=== PATIENT | female | born 1995 | race Caucasian/White ===

== ENCOUNTER 2018-03-10 19:22 | Emergency (ER) | payer SELFPAY ==
[~2018-03-10] VITALS: Ht 172.7 cm; Wt 63.5 kg
[2018-03-10 20:00] LABS: BILIRUBIN,URINE NEGATIVE (NEG); CLARITY,URINE CLOUDY; COLOR,URINE AMBER; NITRITE,URINE NEGATIVE (NEG); PROTEIN,URINE >=300 mg/dL (NEG-TRACE)
[2018-03-10] MEDS ORDERED: IV NORMAL SALINE 1000ML BAG 1,000 ML IV ONE (20:00)
[2018-03-10 20:09] LABS: AMORPHOUS SEDIMENT,UR PRESENT /HPF; BACTERIA,URINE FEW /HPF (0-FEW); RBC,URINE OCC /HPF (0-2); SQUAMOUS EPITHELIAL CELL,UR MOD /LPF
[2018-03-10 20:10] LABS: GRANULAR CASTS,URINE OCCASIONAL /HPF; HYALINE CASTS, URINE MODERATE /HPF
[2018-03-10 20:15] LABS: BASO % 0 % (0-3); EOS % 0 % (0-3); HEMATOCRIT 40.9 % (36.0-47.0); HEMOGLOBIN 14.2 g/dL (12.0-15.5); LYMPH # 1.2 x10^3/uL (1.0-4.8); LYMPH % 10 % (24-48); MEAN CORPUSCULAR HEMOGLOBIN 31 pg (25-35); MEAN CORPUSCULAR HGB CONC 35 g/dL (31-37); MEAN CORPUSCULAR VOLUME 88 fL (79-100); MONO # 0.6 x10^3/uL (0.0-1.1); MONO % 5 % (0-9); NEUT # 9.7 x10^3uL (1.8-7.7); NEUT % 84 % (31-73); PLATELET COUNT 190 x10^3/uL (140-400); RED BLOOD COUNT 4.65 x10^6/uL (3.50-5.40); RED CELL DISTRIBUTION WIDTH 13.4 % (11.5-14.5); WHITE BLOOD COUNT 11.6 x10^3/uL (4.0-11.0)
[2018-03-10 20:27] LABS: CALCIUM 9.8 mg/dL (8.5-10.1); GFR 68.7; POTASSIUM 3.3 mmol/L (3.5-5.1)
[2018-03-10 20:35] LABS: ALBUMIN/GLOBULIN RATIO 1.1 (1.0-1.7); MAGNESIUM 1.8 mg/dL (1.8-2.4); TOTAL BILIRUBIN 0.6 mg/dL (0.2-1.0); TOTAL PROTEIN 7.7 g/dL (6.4-8.2)
--- NOTE | 2018-03-10 21:38 | RAD ---
Indication:VAGINAL BLEEDING X'S 1 HOUR AFTER FALL. PT UNSURE OF LMP. PT HAD A POSITIVE TEST TONIGHT IN ER AND HCG OF 30. TECHNIQUE: Grayscale, color Doppler and spectral waveform images of the pelvis obtained. COMPARISON:None FINDINGS: The uterus measures 7.7 x 5.5 x 3.4 cm (longitudinal, transverse, AP). Endometrial stripe measures 4 mm in thickness. Cervix is within normal limits. Right ovary measures 2.0 x 2.8 x 1.8 cm and demonstrates evidence of blood flow. The left ovary measures 2.3 x 1.8 x 2.3 cm and demonstrates evidence of blood flow. Trace amount of fluid is seen in the endometrial cavity. No gestation sac seen. Small amount of free pelvic fluid seen. IMPRESSION: 1. No convincing evidence of gestation sac. Differential diagnoses includes early , ectopic or complete spontaneous . Follow-up ultrasound recommended. 2. Bilateral ovaries within normal limits. Electronically signed by: Zac Rhodes DO (03/10/2018 9:34 PM) [facility]
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
[2018-03-10 23:30] VITALS: BP 102/58
[2018-03-12 15:30] LABS: GC PROBE Negative (Negative)
== END 2018-03-10 23:31 | disposition home or self-care (01) ==
LOC: ER 19:22
DX: O20.0 Threatened abortion (principal); Z98.890 Other specified postprocedural states; Z96.22 Myringotomy tube(s) status; Z3A.00 Weeks of gestation of pregnancy not specified
CPT/HCPCS: 36415; 76805; 76817; 80053; 81001; 81025; 83735; 84702; 85025; 86900; 86901; 87086; 87491; 87591; 99285; J7030; Q0111

== ENCOUNTER 2018-03-30 09:18 | Emergency (ER) | payer SELFPAY ==
[~2018-03-30] VITALS: Ht 172.7 cm; Wt 67.6 kg
[2018-03-30 09:22] VITALS: BP 122/79
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
[2018-03-30 10:13] LABS: U PREG PATIENT NEGATIVE (NEG)
--- NOTE | 2018-03-30 10:26 | RAD ---
EXAM: CHEST PA LATERAL DATE: 03/30/2018 9:54 AM INDICATION: COUGH,SOA X1 DAY COMPARISON: No Prior FINDINGS: The heart is not enlarged. Mediastinal and hilar contours are normal. No focal parenchymal airspace opacity. No pleural effusion or pneumothorax. IMPRESSION: 1. No radiographic evidence for acute cardiopulmonary process. Electronically signed by: Ananda Baer MD (03/30/2018 10:23 AM) [id number]
[2018-03-30] MEDS ORDERED: BENZ100C PO (10:37)
== END 2018-03-30 10:40 | disposition home or self-care (01) ==
LOC: ER 09:18
DX: S29.012A Strain of muscle and tendon of back wall of thorax, initial encounter (principal); R05 Cough; R09.81 Nasal congestion; Z98.890 Other specified postprocedural states; Z96.22 Myringotomy tube(s) status; X58.XXXA Exposure to other specified factors, initial encounter; Y93.89 Activity, other specified; Y92.89 Other specified places as the place of occurrence of the external cause; Y99.8 Other external cause status
CPT/HCPCS: 71046; 81025; 99285

== ENCOUNTER 2018-04-30 13:54 | Emergency (ER) | payer SELFPAY ==
[~2018-04-30] VITALS: Ht 172.7 cm; Wt 63.5 kg
[~2018-04-30 13:54] MED LIST: BENZ100C PO
[2018-04-30 14:15] VITALS: BP 114/74
[2018-04-30] MEDS ORDERED: AMOX1TAB61 PO (15:00)
[2018-04-30] MEDS ORDERED: DIPHTH,PERTUSS(ACELL),TET TOX 0.5 ML DISP.SYRIN. VAX IM ONE (15:00)
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
== END 2018-04-30 15:35 | disposition home or self-care (01) ==
LOC: ER 13:54
DX: S61.552A Open bite of left wrist, initial encounter (principal); Y04.1XXA Assault by human bite, initial encounter; Y93.89 Activity, other specified; Y92.89 Other specified places as the place of occurrence of the external cause; Y99.8 Other external cause status
CPT/HCPCS: 90471; 90715; 99283-25

== ENCOUNTER 2018-06-04 17:34 | Emergency (ER) | payer SELFPAY ==
[~2018-06-04] VITALS: Ht 172.7 cm; Wt 63.5 kg
[~2018-06-04 17:34] MED LIST changes: +AMOX1TAB61 PO
[2018-06-04 17:56] VITALS: BP 122/68
[2018-06-04] MEDS ORDERED: IBUP-1060 PO (18:32)
[2018-06-04] MEDS ORDERED: HYDR-971 PO (18:32)
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
[2018-06-04] MEDS ORDERED: IBUPROFEN 400 MG TABLET. PO ONE (19:00)
[2018-06-04] MEDS ORDERED: HYDROcodone/APAP 5/325MG 1 TAB TABLET PO ONE (19:00)
== END 2018-06-04 19:05 | disposition home or self-care (01) ==
LOC: ER 17:34
DX: S01.512A Laceration without foreign body of oral cavity, initial encounter (principal); Z98.890 Other specified postprocedural states; Z96.22 Myringotomy tube(s) status; W18.39XA Other fall on same level, initial encounter; Y93.89 Activity, other specified; Y92.89 Other specified places as the place of occurrence of the external cause; Y99.8 Other external cause status
CPT/HCPCS: 99283

== ENCOUNTER 2019-01-05 15:31 | Emergency (ER) | payer SELFPAY ==
[~2019-01-05] VITALS: Ht 172.7 cm; Wt 63.5 kg
[~2019-01-05 15:31] MED LIST changes: +HYDR-3164 PO; +IBUP-1060 PO
[2019-01-05 16:05] VITALS: BP 122/68
[2019-01-05] MEDS ORDERED: CEPH500C PO (16:42)
--- NOTE | 2019-01-05 16:43 | PHYS DOC ---
Past Medical History Past Medical History: No Pertinent History Past Surgical History: , Other Additional Past Surgical Histo: EAR TUBES Additional Information: 4-5 smokes a day Alcohol Use: None Drug Use: None Adult General Chief Complaint Chief Complaint: SKIN RASH/ABSCESS [facility] HPI Patient is a 23 year old [female] who presents with [rash to the posterior left leg. Patient reports she has had some itching and a heat rash to her elbows and posterior knees for the past week or so, reports she continued to scratch behind her left leg might. Patient has started to have a redness and discomfort to that area. Denies fever, denies leg pain. States she had tried some A+D Ointment as well as some hydrocortisone cream with no improvement. States it has continued to grow.] Review of Systems Review of Systems Constitutional: Denies fever or chills [] Eyes: Denies change in visual acuity, redness, or eye pain [] HENT: Denies nasal congestion or sore throat [] Respiratory: Denies cough or shortness of breath [] Cardiovascular: No additional information not addressed in HPI [] GI: Denies abdominal pain, nausea, vomiting, bloody stools or diarrhea [] : Denies dysuria or hematuria [] Musculoskeletal: Denies back pain or joint pain [] Integument:Reports skin lesion posterior left leg, reports 'heat rash' to Antecubital areas as well as posterior right knee [] Neurologic: Denies headache, focal weakness or sensory changes [] Endocrine: Denies polyuria or polydipsia [] All other systems were reviewed and found to be within normal limits, except as documented in this note. Allergies Allergies Allergies Coded Allergies Type Severity Reaction Last Updated Verified No Known Drug Allergies 08/23/14 No Physical Exam Physical Exam Constitutional: Well developed, well nourished, no acute distress, non-toxic appearance. [] HENT: Normocephalic, atraumatic, bilateral external ears normal, oropharynx moist, no oral exudates, nose normal. [] Eyes: PERRLA, EOMI, conjunctiva normal, no discharge. [] Neck: Normal range of motion, no tenderness, supple, no stridor. [] Cardiovascular:Heart rate regular rhythm, no murmur [] Lungs & Thorax: Bilateral breath sounds clear to auscultation [] Abdomen: Bowel sounds normal, soft, no tenderness, no masses, no pulsatile masses. [] Skin: Warm, dry, dry plaques noted to Antecubital areas, bilatarally, dry plaque noted posterior right knee. Posterior right knee with 4 circular, abraded, erythematous lesions without purulence, warmth noted, no abscess or mass noted. [] Back: No tenderness, no CVA tenderness. [] Extremities: No tenderness, no cyanosis, no clubbing, ROM intact, no edema. [] Neurologic: Alert and oriented X 3, normal motor function, normal sensory function, no focal deficits noted. [] Psychologic: Affect normal, judgement normal, mood normal. [] Current Patient Data Vital Signs Vital Signs Date Time Temp Pulse Resp B/P (MAP) Pulse Ox O2 Delivery O2 Flow Rate FiO2 01/05/19 16:05 97.8 66 18 100 Room Air 97.8 EKG EKG [] Radiology/Procedures Radiology/Procedures [] Course & Med Decision Making Course & Med Decision Making Pertinent Labs and Imaging studies reviewed. (See chart for details) [Discussed patient's rash appears to be eczema, with this. Pruritus appearance and locations. Discussed patient to continue using steroid creams on these areas, however denies use steroid cream on her urine and her leg. Discussed use antibiotics with patient, patient in agreement to take antibiotics and will follow-up with her primary care provider.] Dragon Disclaimer Dragon Disclaimer This electronic medical record was generated, in whole or in part, using a voice recognition dictation system. Departure Departure Impression: Primary Impression: Cellulitis and abscess of left leg Disposition: 01 HOME, SELF-CARE Condition: GOOD Referrals: NO PCP (PCP) Patient Instructions: Cellulitis, [id number] Additional Instructions: As we discussed, make sure you are taking the antibiotic for the entire time You can consider using hydrocortisone cream on your arms and right knee for the itching. You can do this two or three times a day. It does look like you may have eczema, which is treated with steroid creams to these joints. If you continue to have this discomfort, you should follow up with your primary care provider for further evaluation and treatment. Do not use it on your left knee, until your wounds are healed keep your leg clean, keep loose clothes over your leg until it heals. Scripts Cephalexin (CEPHALEXIN) 500 Mg Capsule 1 CAP PO BID, #20 CAP Prov: ALEKSANDRA LORA APRN 01/05/19 ALEKSANDRA LORA APRN Jan 05, 2019 16:43
== END 2019-01-05 16:55 | disposition home or self-care (01) ==
LOC: ER 15:31
DX: L02.416 Cutaneous abscess of left lower limb (principal); L03.116 Cellulitis of left lower limb; F17.200 Nicotine dependence, unspecified, uncomplicated; Z98.890 Other specified postprocedural states
CPT/HCPCS: 99283

== ENCOUNTER 2021-12-16 11:02 | Emergency (ER) | payer SELFPAY ==
[~2021-12-16] VITALS: Ht 172.7 cm; Wt 65.0 kg
[~2021-12-16 11:02] MED LIST changes: +CEPH500C PO
--- NOTE | 2021-12-16 11:17 | ED.ADGEN ---
Past Medical History Past Medical History: No Pertinent History Past Surgical History: , Other Additional Past Surgical Histo: EAR TUBES Smoking Status: Current Every Day Smoker Alcohol Use: None Drug Use: None General Adult EDM: Chief Complaint: ABDOMINAL PAIN HPI: HPI: Patient is a 26-year-old female who arrives ambulatory to the emergency department complaining of right-sided abdominal pain. Patient reports this pain has been ongoing now for 2 to 3 days. Patient reports during this time she has had intermittent fevers as well. Patient states today her pain got worse and she decided to seek evaluation. Despite the patient's pain she denies any likelihood of being . She further denies vaginal bleeding or discharge. Additionally she denies any vomiting or diarrhea. Furthermore she states that this is confined to the right side of her abdomen and does not migrate to her back. Patient points to the region between the right upper and lower quadrant as to where her pain exists. She is awake, alert and uncomfortable appearing. Review of Systems: Review of Systems: Constitutional: Reports fever. Denies chills. [] Eyes: Denies change in visual acuity. [] HENT: Denies nasal congestion or sore throat. [] Respiratory: Denies cough or shortness of breath. [] Cardiovascular: Denies chest pain or edema. [] GI: Reports abdominal pain. Denies nausea, vomiting, bloody stools or diarrhea. [] : Denies dysuria. [] Musculoskeletal: Denies back pain or joint pain. [] Integument: Denies rash. [] Neurologic: Denies headache, focal weakness or sensory changes. [] Endocrine: Denies polyuria or polydipsia. [] Lymphatic: Denies swollen glands. [] Psychiatric: Denies depression or anxiety. [] Current Medications: Current Medications Medications (Trade) Dose Ordered Sig/Nazanin Start Time Stop Time Status Last Admin Dose Admin Morphine Sulfate (Morphine Sulfate) 4 mg 1X ONCE 12/16/21 12:45 12/16/21 12:46 DC 12/16/21 12:45 4 MG Ondansetron HCl (Zofran) 4 mg 1X ONCE 12/16/21 12:45 12/16/21 12:46 DC 12/16/21 12:45 4 MG Sodium Chloride 1,000 ml @ 1,000 mls/hr 1X ONCE 12/16/21 12:00 12/16/21 12:59 DC 12/16/21 11:53 1,000 MLS/HR Allergies: Allergies: Allergies Coded Allergies Type Severity Reaction Last Updated Verified No Known Drug Allergies 08/23/14 No Physical Exam: PE: Constitutional: Well developed, well nourished, no acute distress, non-toxic appearance. [] HENT: Normocephalic, atraumatic, bilateral external ears normal, oropharynx moist, no oral exudates, nose normal. [] Eyes: PERRLA, EOMI, conjunctiva normal, no discharge. [] Neck: Normal range of motion, no tenderness, supple, no stridor. [] Cardiovascular:Heart rate regular rhythm, no murmur [] Lungs & Thorax: Bilateral breath sounds clear to auscultation [] Abdomen: Bowel sounds normal, soft, no tenderness, no masses, no pulsatile masses. [] Skin: Warm, dry, no erythema, no rash. [] Back: No tenderness, no CVA tenderness. [] Extremities: No tenderness, no cyanosis, no clubbing, ROM intact, no edema. [] Neurologic: Alert and oriented X 3, normal motor function, normal sensory function, no focal deficits noted. [] Psychologic: Affect normal, judgement normal, mood normal. [] Current Patient Data: Labs: Laboratory Tests Test 12/16/21 11:20 White Blood Count 8.2 x10^3/uL (4.0-11.0) Red Blood Count 4.34 x10^6/uL (3.50-5.40) Hemoglobin 13.0 g/dL (12.0-15.5) Hematocrit 37.9 % (36.0-47.0) Mean Corpuscular Volume 87 fL (79-100) Mean Corpuscular Hemoglobin 30 pg (25-35) Mean Corpuscular Hemoglobin Concent 34 g/dL (31-37) Red Cell Distribution Width 12.6 % (11.5-14.5) Platelet Count 290 x10^3/uL (140-400) Neutrophils (%) (Auto) 75 % (31-73) H Lymphocytes (%) (Auto) 18 % (24-48) L Monocytes (%) (Auto) 7 % (0-9) Eosinophils (%) (Auto) 1 % (0-3) Basophils (%) (Auto) 1 % (0-3) Neutrophils # (Auto) 6.1 x10^3/uL (1.8-7.7) Lymphocytes # (Auto) 1.5 x10^3/uL (1.0-4.8) Monocytes # (Auto) 0.5 x10^3/uL (0.0-1.1) Eosinophils # (Auto) 0.0 x10^3/uL (0.0-0.7) Basophils # (Auto) 0.0 x10^3/uL (0.0-0.2) Maternal Serum HCG Beta Subunit < 1 mIU/mL (0-5) Sodium Level 144 mmol/L (136-145) Potassium Level 3.7 mmol/L (3.5-5.1) Chloride Level 105 mmol/L (98-107) Carbon Dioxide Level 30 mmol/L (21-32) Anion Gap 9 (6-14) Blood Urea Nitrogen 7 mg/dL (7-20) Creatinine 0.8 mg/dL (0.6-1.0) Estimated GFR (Cockcroft-Gault) 86.7 BUN/Creatinine Ratio 9 (6-20) Glucose Level 69 mg/dL (70-99) L Calcium Level 8.7 mg/dL (8.5-10.1) Total Bilirubin 0.3 mg/dL (0.2-1.0) Aspartate Amino Transferase (AST) 15 U/L (15-37) Alanine Aminotransferase (ALT) 24 U/L (14-59) Alkaline Phosphatase 71 U/L (46-116) Total Protein 7.3 g/dL (6.4-8.2) Albumin 2.5 g/dL (3.4-5.0) L Albumin/Globulin Ratio 0.5 (1.0-1.7) L Lipase 166 U/L (73-393) Serum Test, Qualitative Negative (NEG) Laboratory Tests 12/16/21 11:20 Laboratory Tests 12/16/21 11:20 Vital Signs: Vital Signs Date Time Temp Pulse Resp B/P (MAP) Pulse Ox O2 Delivery O2 Flow Rate FiO2 12/16/21 12:45 Room Air 12/16/21 12:22 76 20 100/60 (73) 98 12/16/21 11:19 98.1 98.1 EKG: EKG: [] Heart Score: C/O Chest Pain: No Risk Factors: Risk Factors: DM, Current or recent (<one month) smoker, HTN, HLP, family hist ory of CAD, obesity. Risk Scores: Score 0 - 3: 2.5% MACE over next 6 weeks - Discharge Home Score 4 - 6: 20.3% MACE over next 6 weeks - Admit for Clinical Observation Score 7 - 10: 72.7% MACE over next 6 weeks - Early Invasive Strategies Radiology/Procedures: Radiology/Procedures: [] Course & Med Decision Making: Course & Med Decision Making Pertinent Labs and Imaging studies reviewed. (See chart for details) Upon arrival the patient was taken directly to room 5. She was examined and IV access was obtained. Blood was collected and interpreted as normal. A CT scan was ordered given the patient's pain as well as location. CT imaging did not reveal anything acute other than borderline splenomegaly. Patient does have what appears to be moderate fecal retention as well. She does admit that she h as not had a bowel movement 3 days because it hurts to do so. I do believe that constipation may be the source of her pain and have advised that she consider some [id number] promotility agents. Should the patient develop any fevers, intractable vomiting or pain, I advised that she return. The patient understands and has agreed to do so. She is nontoxic-appearing and stable for discharge in the company of her mother William Disclaimer: William Disclaimer: This electronic medical record was generated, in whole or in part, using a voice recognition dictation system. Departure Departure Impression: Primary Impression: Abdominal pain Additional Impressions: Fecal retention Splenomegaly Disposition: HOME / SELF CARE / HOMELESS Condition: STABLE Referrals: NO PCP (PCP) Patient Instructions: Abdominal Migraine, Constipation, Adult Scripts Magnesium Citrate (MAGNESIUM CITRATE) 296 Ml Solution 296 ML PO ONCE, #296 ML Drink half a bottle every 12 hours as needed for constipation Prov: BETSEY LOPEZ DO 12/16/21 Problem Qualifiers BETSEY LOPEZ DO December 16, 2021 11:17
[2021-12-16 11:31] LABS: BASO % 1 % (0-3); EOS % 1 % (0-3); HEMATOCRIT 37.9 % (36.0-47.0); LYMPH # 1.5 x10^3/uL (1.0-4.8); LYMPH % 18 % (24-48); MEAN CORPUSCULAR HEMOGLOBIN 30 pg (25-35); MEAN CORPUSCULAR HGB CONC 34 g/dL (31-37); MEAN CORPUSCULAR VOLUME 87 fL (79-100); MONO # 0.5 x10^3/uL (0.0-1.1); MONO % 7 % (0-9); NEUT # 6.1 x10^3/uL (1.8-7.7); NEUT % 75 % (31-73); PLATELET COUNT 290 x10^3/uL (140-400); RED BLOOD COUNT 4.34 x10^6/uL (3.50-5.40); RED CELL DISTRIBUTION WIDTH 12.6 % (11.5-14.5); WHITE BLOOD COUNT 8.2 x10^3/uL (4.0-11.0)
[2021-12-16 11:40] LABS: CALCIUM 8.7 mg/dL (8.5-10.1); CREATININE 0.8 mg/dL (0.6-1.0); GFR 86.7; POTASSIUM 3.7 mmol/L (3.5-5.1)
[2021-12-16 11:46] LABS: ALBUMIN 2.5 g/dL (3.4-5.0); ALBUMIN/GLOBULIN RATIO 0.5 (1.0-1.7); TOTAL BILIRUBIN 0.3 mg/dL (0.2-1.0); TOTAL PROTEIN 7.3 g/dL (6.4-8.2)
[2021-12-16] MEDS ORDERED: IV NORMAL SALINE 1000ML BAG 1,000 ML IV ONE (12:00)
[2021-12-16 12:07] LABS: PREG TEST PT QUAL NEGATIVE (NEG)
[2021-12-16 12:22] VITALS: BP 100/60
[2021-12-16] MEDS ORDERED: ONDANSETRON PF 4 MG/2 ML VIAL. IVP ONE (12:45)
[2021-12-16] MEDS ORDERED: MORPHINE SULFATE 4 MG/ML INJ. IVP ONE (12:45)
--- NOTE | 2021-12-16 12:52 | RAD ---
CT ABDOMEN+PELVIS WO History: Reason: Right-sided abdominal pain / Spl. Instructions: / History: Technique: Noncontrast examination of the abdomen and pelvis. Coronal and sagittal reconstructions we re performed. Exposure: One or more of the following individualized dose reduction techniques were utilized for thi s examination: 1. Automated exposure control 2. Adjustment of the mA and/or kV according to patient size 3. Use of iterative reconstruction technique. Comparison: None Findings: Lower chest: No consolidation or pleural effusion. Abdomen and pelvis:. Lack of intra-abdominal fat degraded evaluation. Borderline enlarged spleen new ures 13.5 cm craniocaudal. Unremarkable noncontrast appearance of the liver, adrenal glands, and panc reas. Contracted gallbladder. No renal calculus. No hydronephrosis. Decompressed urinary bladder. Normal appendix. No evidence of bowel obstruction. No pathologic lymphadenopathy. Minimal pelvic free fluid, likely physiologic. Bones: No pathologic osseous lesions. Impression: 1. No acute abdominal or pelvic pathology. 2. Borderline splenomegaly. Electronically signed by: Sharan Umanzor DO (12/16/2021 12:50 PM) [id number]
[2021-12-16] MEDS ORDERED: MAGN296S68 PO (13:04)
== END 2021-12-16 13:14 | disposition home or self-care (01) ==
LOC: ER 11:02
DX: R10.11 Right upper quadrant pain (principal); K59.00 Constipation, unspecified; R16.1 Splenomegaly, not elsewhere classified; F17.200 Nicotine dependence, unspecified, uncomplicated
CPT/HCPCS: 36415; 74176; 80053; 83690; 84702; 84703; 85025; 96361; 96374; 96375; 99284; J2270; J2405; J7030